=== PATIENT | female | born 1995 | race Caucasian/White ===

== ENCOUNTER 2018-01-08 21:12 | Emergency (ER) | payer OTHER ==
[~2018-01-08] VITALS: Ht 160 cm; Wt 60.7 kg
[2018-01-08 21:21] VITALS: BP 135/95
[2018-01-08] MEDS ORDERED: HYDR1TAB12 PO (21:52)
[2018-01-08] MEDS ORDERED: OXYcodone/APAP 5/325MG TABLET ONE (22:03)
[2018-01-08] MEDS ORDERED: ONDANSETRON ODT 4 MG ONE (22:07)
[2018-01-08] MEDS ORDERED: OXYcodone/APAP 5/325MG TABLET PO ONE (22:30)
[2018-01-08] MEDS ORDERED: ONDANSETRON ODT 4 MG PO ONE (22:30)
== END 2018-01-08 22:17 | disposition home or self-care (01) ==
LOC: ED 22:11
DX: K08.89 Other specified disorders of teeth and supporting structures (principal)
CPT/HCPCS: 99283; Q0162

== ENCOUNTER → 2018-01-26 | Outpatient (CLI) | payer OTHER ==
[~2018-01-26] MED LIST: HYDR1TAB12 PO
[2018-01-26 15:26] LABS: BASOPHILS # (AUTO) 0.01 x10^3/uL (0-0.1); BASOPHILS % (AUTO) 0 % (0-1); EOSINOPHILS # (AUTO) 0.07 x10^3/uL (0-0.4); EOSINOPHILS % (AUTO) 2 % (1-7); LYMPHOCYTES # (AUTO) 1.35 x10^3/uL (1-3.4); LYMPHOCYTES % (AUTO) 32 % (22-44); MD NO; MEAN CORPUSCULAR HEMOGLOBIN 29.1 pg (27.0-34.8); MEAN CORPUSCULAR HGB CONC 33.8 g/dL (32.4-35.8); MEAN CORPUSCULAR VOLUME 86.2 fL (80-100); MEAN PLATELET VOLUME 9.3 fL (7.4-10.4); MONOCYTES # (AUTO) 0.37 x10^3/uL (0.2-0.8); MONOCYTES % (AUTO) 9 % (2-9); NEUTROPHILS # (AUTO) 2.47 x10^3/uL (1.8-6.8); NEUTROPHILS % (AUTO) 58 % (42-75); PLATELET COUNT 171 x10^3/uL (130-400); RED BLOOD COUNT 5.07 x10^6/uL (3.82-5.3); RED CELL DISTRIBUTION WIDTH 12.4 % (9.6-15.2)
[2018-01-26 15:35] LABS: CHLORIDE 109 mmol/L (98-107)
[2018-01-26 15:48] LABS: T4 (THYROXINE) 7.8 mcg/dL (4.8-13.9)
[2018-01-26 16:06] LABS: % IRON SATURATION 44 % (20-55); ALANINE AMINOTRANSFERASE 37 U/L (12-78); ALBUMIN 3.9 g/dL (3.4-5.0); ALKALINE PHOSPHATASE 82 U/L (45-117); ANION GAP 6 mmol/L (5-15); BILIRUBIN,TOTAL 2.1 mg/dL (0.2-1.0); CALCIUM 8.9 mg/dL (8.5-10.1); CREATININE 0.84 mg/dL (0.55-1.02); FOLATE LEVEL 15.5 ng/mL (3.1-17.5); IRON LEVEL 159 mcg/dL (50-170); TOTAL IRON BINDING CAPACITY 364 mcg/dL (250-450); TOTAL PROTEIN 7.1 g/dL (6.4-8.2)
== END | disposition home or self-care (01) ==
LOC: LAB 11:47
PROVIDERS: ATTEND Nurse Practitioner Family
DX: R11.0 Nausea (principal); R14.0 Abdominal distension (gaseous); R53.83 Other fatigue
CPT/HCPCS: 36415; 80053; 82607; 82746; 83516; 83540; 83550; 84436; 84443; 84481; 85025

== ENCOUNTER → 2018-05-07 | Outpatient (CLI) | payer OTHER ==
[~2018-05-07] MED LIST changes: +No meds per pt.
== END ==
LOC: STAR 15:43
PROVIDERS: ATTEND Specialist
DX: Z02.9 Encounter for administrative examinations, unspecified (principal)

== ENCOUNTER 2018-05-13 07:11 | Day surgery (SDC) | payer OTHER ==
[~2018-05-13] VITALS: Ht 160 cm; Wt 61.3 kg
[2018-05-13] MEDS ORDERED: LACTATED RINGERS 1,000 ML IV SCH (07:50)
[2018-05-13 08:09] VITALS: BP 116/78
[2018-05-13 08:18] LABS: HCG UR SG 1.017 (1.003-1.030)
[2018-05-13] MEDS ORDERED: SILVER NITRATE STICK TP ONE (08:39)
[2018-05-13] MEDS ORDERED: BUPIVACAINE/PF-EPI 0.25% 1:200K ONE (08:39)
[2018-05-13] MEDS ORDERED: OxyconTIN ER 10 MG TAB.ER ONE (09:00)
[2018-05-13] MEDS ORDERED: OxyconTIN ER 10 MG TAB.ER PO ONE (09:00)
[2018-05-13] MEDS ORDERED: FAMOTIDINE 20 MG TABLET ONE (09:01)
[2018-05-13] MEDS ORDERED: ACETAMINOPHEN 500 MG TABLET ONE (09:01)
[2018-05-13] MEDS ORDERED: MIDAZOLAM 1 MG/ML, 2ML ONE (09:02)
[2018-05-13] MEDS ORDERED: FENTANYL PF 250 MCG/5ML ONE (09:02)
[2018-05-13] MEDS ORDERED: LIDOCAINE-MPF 2% ,5ML ONE (09:15)
[2018-05-13] MEDS ORDERED: LIDOCAINE 4%, 4 ML SYR/CANN TP ONE (09:15)
[2018-05-13] MEDS ORDERED: FENTANYL PF 100 MCG/2ML IV PRN (09:30)
[2018-05-13] MEDS ORDERED: OXYcodone 5 MG/5 ML ORAL.SOL UDC PO PRN (09:30)
[2018-05-13] MEDS ORDERED: PROMETHAZINE 25 MG/ML, 1ML IV PRN (09:30)
[2018-05-13] MEDS ORDERED: MORPHINE SULFATE 4 MG/ML, 1ML IVPush PRN (09:30)
[2018-05-13] MEDS ORDERED: ONDANSETRON 2MG/ML, 2ML IV PRN (09:30)
[2018-05-13] MEDS ORDERED: SUGAMMADEX 200 MG/2 ML IVPush ONE (09:45)
[2018-05-13] MEDS ORDERED: CEFAZOLIN 1,000 MG ONE (09:48)
[2018-05-13] MEDS ORDERED: NEOSTIGMINE 1 MG/ML, 10ML ONE (09:48)
[2018-05-13] MEDS ORDERED: GLYCOPYRROLATE 0.2MG/1ML, 5ML ONE (09:48)
[2018-05-13] MEDS ORDERED: DEXAMETHASONE 4 MG/ML, 1ML ONE (09:48)
[2018-05-13] MEDS ORDERED: PROPOFOL 10 MG/ML, 20ML ONE (09:48)
[2018-05-13] MEDS ORDERED: ONDANSETRON 2MG/ML, 2ML ONE (09:48)
[2018-05-13] MEDS ORDERED: SUCCINYLCHOLINE 20 MG/ML, 10ML ONE (09:48)
[2018-05-13] MEDS ORDERED: ROCURONIUM 10MG/ML,5ML ONE (09:48)
[2018-05-13] MEDS ORDERED: NALOXONE 0.4 MG/ML, 1ML ONE (09:51)
[2018-05-13] MEDS ORDERED: MEPERIDINE/PF 50 MG/ML ONE ×2 (10:00→10:18)
[2018-05-13] MEDS ORDERED: FAMOTIDINE 20 MG TABLET PO ONE (10:00)
[2018-05-13] MEDS ORDERED: ACETAMINOPHEN 500 MG TABLET PO ONE (10:00)
[2018-05-13] MEDS: MEPERIDINE/PF 25MG/0.5ML IVPush PRN (10:20)
== END 2018-05-13 14:10 | disposition home or self-care (01) ==
LOC: OUT 07:11
PROVIDERS: ATTEND Specialist
DX: N83.201 Unspecified ovarian cyst, right side (principal); Z88.0 Allergy status to penicillin; Z88.8 Allergy status to other drugs, medicaments and biological substances
CPT/HCPCS: 49320; 81025; J0330; J0690; J1100; J2175; J2250; J2310; J2405; J2704; J2710; J3010; J3490; J7120

== ENCOUNTER 2019-11-12 13:33 | Outpatient (CLI) | payer OTHER ==
[~2019-11-12 13:33] MED LIST changes: -HYDR1TAB12 PO; +HYDR1TAB13 PO
[2019-11-12 14:57] LABS: CRYPTOSPORIDIUM ANTIGEN Negative (Negative)
== END 2019-11-12 23:59 | disposition home or self-care (01) ==
LOC: LAB 13:33
PROVIDERS: ATTEND Nurse Practitioner Family
DX: R19.7 Diarrhea, unspecified (principal)
CPT/HCPCS: 82274; 87046; 87328; 87329; 87338; 87427; 89055